=== PATIENT | male | born 1985 | race Caucasian/White ===

== ENCOUNTER 2019-09-28 17:48 | Emergency (ER) | payer SELFPAY ==
--- NOTE | 2019-09-28 18:03 | ED Physician Documentation ---
PD HPI URI - Stated complaint Stated Complaint: FEVER,CHILLS,PHLEGM COUGH, RUNNY NOSE - Chief complaint Chief Complaint: Fever - History obtained from History obtained from: Patient - History of Present Illness Timing - onset: Other (34-year-old smoker has been sick for about 3 weeks with a productive cough, chills, congestion some shortness of breath. He has had fevers on and off at night.) Review of Systems Constitutional: reports: Fever Nose: reports: Rhinorrhea / runny nose, Congestion Throat: denies: Sore throat Respiratory: reports: Dyspnea, Cough PD PAST MEDICAL HISTORY - Present Medications Home Medications: Ambulatory Orders Medication Instructions Recorded Confirmed Albuterol Sulf [Ventolin Hfa 1 - 2 puffs INH Q4HR PRN #1 inhaler 09/28/19 Inhaler] Doxycycline Hyclate 100 mg PO BID #20 capsule 09/28/19 guaiFENesin/CODEINE [Robitussin AC] 5 - 10 ml PO Q6H PRN #120 ml 09/28/19 predniSONE [Deltasone] 60 mg PO DAILY 5 Days #15 tablet 09/28/19 - Allergies Allergies/Adverse Reactions: Allergies Allergy/AdvReac Type Severity Reaction Status Date / Time No Known Drug Allergies Allergy Verified 09/28/19 17:51 PD ED PE NORMAL - Vitals Vital signs reviewed: Yes - General General: Alert and oriented X 3, Other (Smells heavily of marijuana, pleasant and cooperative) - HEENT HEENT: PERRL, EOMI, Pharynx benign - Neck Neck: Supple, no meningeal sign, No bony TTP - Cardiac Cardiac: RRR, No murmur - Respiratory Respiratory: Other (Diffusely wheezy and rhonchorous throughout without focal findings) - Abdomen Abdomen: Soft, Non tender - Back Back: No CVA TTP, No spinal TTP - Derm Derm: Normal color, Warm and dry - Extremities Extremities: No edema, No calf tenderness / cord - Neuro Neuro: Alert and oriented X 3, Normal speech Results - Vitals Vitals: Vital Signs - 24 hr 09/28/19 17:51 Temperature 36.4 C L Heart Rate 72 Respiratory 17 Rate Blood Pressure 132/93 H O2 Saturation 99 Oxygen O2 Source Room air PD MEDICAL DECISION MAKING - ED course ED course: 34-year-old gentleman who smokes with clinical bronchitis, given the time course he does merit a trial of antibiotic treatment per IDSA guidelines. Departure - Departure Disposition: 01 Home, Self Care Clinical Impression: Bronchitis Condition: Good Record reviewed to determine appropriate education?: Yes Instructions: ED Bronchitis Asthmatic Prescriptions: Albuterol Sulf [Ventolin Hfa Inhaler] 1 - 2 puffs INH Q4HR PRN #1 inhaler PRN Reason: Shortness Of Air/Wheezing Doxycycline Hyclate 100 mg PO BID #20 capsule guaiFENesin/CODEINE [Robitussin AC] 5 - 10 ml PO Q6H PRN #120 ml PRN Reason: Cough predniSONE [Deltasone] 60 mg PO DAILY 5 Days #15 tablet Comments: Call your doctor to arrange a follow-up appointment, make the next available appointment. In the interim, return anytime if worse or if new symptoms develop. Your blood pressure was elevated today on check into the emergency department. This does not mean that you have hypertension, it is a common phenomenon to come to the emergency department and have elevated blood pressure. I recommend that you see your primary care physician within the week to have it rechecked when you are feeling better. Forms: Activity restrictions
[2019-09-28 18:08] VITALS: BP 132/93
== END 2019-09-28 18:15 | disposition home or self-care (01) ==
LOC: ED 17:48
DX: J40 Bronchitis, not specified as acute or chronic (principal); F17.200 Nicotine dependence, unspecified, uncomplicated; R03.0 Elevated blood-pressure reading, without diagnosis of hypertension
CPT/HCPCS: 99283

== ENCOUNTER 2019-10-27 11:27 | Emergency (ER) | payer SELFPAY ==
--- NOTE | 2019-10-27 14:06 | ED Physician Documentation ---
History of Present Illness - Stated complaint Stated Complaint: GLF, LIP LAC - Chief complaint Chief Complaint: Wound - History obtained from History obtained from: Patient - History of Present Illness Timing: Today - Additonal information Additional information: 34-year-old male was walking out of his house today when he fell flat onto his face lacerating his upper lip. He felt like he had bit through his lip through and through and he had some trouble controlling the bleeding. He is arrived now is able to control bleeding did not have any loss of consciousness denies any neck pain. Denies any other specific injury associated with the fall Review of Systems Constitutional: denies: Fever Eyes: denies: Decreased vision Ears: denies: Ear pain Nose: denies: Congestion Throat: denies: Sore throat Respiratory: denies: Cough GI: denies: Nausea, Vomiting Musculoskeletal: denies: Neck pain, Back pain, Extremity pain Neurologic: reports: Head injury. denies: Generalized weakness, Focal weakness, Numbness, Confused, Altered mental status, Headache, LOC PD PAST MEDICAL HISTORY - Past Surgical History Past Surgical History: No - Present Medications Home Medications: Ambulatory Orders Medication Instructions Recorded Confirmed Albuterol Sulf [Ventolin Hfa 1 - 2 puffs INH Q4HR PRN #1 inhaler 09/28/19 Inhaler] Doxycycline Hyclate 100 mg PO BID #20 capsule 09/28/19 guaiFENesin/CODEINE [Robitussin AC] 5 - 10 ml PO Q6H PRN #120 ml 09/28/19 predniSONE [Deltasone] 60 mg PO DAILY 5 Days #15 tablet 09/28/19 - Allergies Allergies/Adverse Reactions: Allergies Allergy/AdvReac Type Severity Reaction Status Date / Time No Known Drug Allergies Allergy Verified 10/27/19 11:35 - Social History Does the pt smoke?: Yes Smoking Status: Current every day smoker Does the pt drink ETOH?: Yes Does the pt have substance abuse?: Yes - POLST Patient has POLST: No PD ED PE NORMAL - Vitals Vital signs reviewed: Yes (hypertnesive) - General General: Alert and oriented X 3, No acute distress, Well developed/nourished - HEENT HEENT: PERRL, EOMI, Other (There is a laceration to the left upper lip that does not cross the vermilion border it is parallel to the vermilion border and is not deep. I am unable to separate the skin to open the wound. There is a corresponding wound on the buccal mucosa that is macerated. There is no foreign material in the wound and the wound is not deep.) - Respiratory Respiratory: No respiratory distress - Derm Derm: Normal color, Warm and dry, No rash - Extremities Extremities: No deformity - Neuro Neuro: Alert and oriented X 3, pit clerk 2-12 intact, No motor deficit, No sensory deficit, Normal speech Eye Opening: Spontaneous Motor: Obeys Commands Verbal: Oriented GCS Score: 15 - Psych Psych: Normal mood, Normal affect Results - Vitals Vitals: Vital Signs - 24 hr 10/27/19 11:35 Temperature 36.9 C Heart Rate 82 Respiratory 17 Rate Blood Pressure 129/81 H O2 Saturation 100 Oxygen O2 Source Room air PD MEDICAL DECISION MAKING - ED course Complexity details: considered differential, d/w patient ED course: 34-year-old male with a upper lip laceration that does not need specific repair. Departure - Departure Disposition: 01 Home, Self Care Clinical Impression: Laceration of lip Qualifiers: Encounter type: initial encounter Qualified Code(s): S01.511A - Laceration without foreign body of lip, initial encounter Condition: Stable Instructions: ED Laceration Mouth Follow-Up: [facility] [Provider Group] Comments: Today it looks like the laceration after he upper lip does not penetrate through the entire lip. It will not need specific repair today and the inside of the lip should heal up relatively rapidly within the day.
[2019-10-27 14:33] VITALS: BP 108/72
== END 2019-10-27 14:40 | disposition home or self-care (01) ==
LOC: ED 11:27
DX: S01.511A Laceration without foreign body of lip, initial encounter (principal); W18.30XA Fall on same level, unspecified, initial encounter; Y93.01 Activity, walking, marching and hiking; Y92.009 Unspecified place in unspecified non-institutional (private) residence as the place of occurrence of the external cause; F17.200 Nicotine dependence, unspecified, uncomplicated
CPT/HCPCS: 99281; 99282